=== PATIENT | female | born 1935 | race Caucasian/White ===

== ENCOUNTER 2020-11-07 17:52 | Inpatient (IN) ==
[2020-11-08] MEDS: *HR* OxyCODONE/APAP 5/325 TABLET PO PRN (02:54)
[2020-11-08] MEDS: Sennosides/Docusate Sodium TABLET PO SCH ×2 (09:03→20:55)
[2020-11-08] MEDS: Cholecalciferol (D-3) 1,000 UNIT (25MCG) TABLET PO SCH (09:03)
[2020-11-08] MEDS: lisinopriL 10 MG TABLET PO SCH (09:03)
[2020-11-08] MEDS: polyethylene glycoL 3350 17 GM POWD.PACK PO SCH ×2 (09:04→20:55)
[2020-11-08] MEDS: Metoprolol XL (24 HR) Succ 25 MG TAB.ER.24H PO SCH (11:42)
[2020-11-08] MEDS: *HR* Rivaroxaban 10 MG TABLET PO SCH (17:02)
[2020-11-09] MEDS: Cholecalciferol (D-3) 1,000 UNIT (25MCG) TABLET PO SCH (09:21)
[2020-11-09] MEDS: Sennosides/Docusate Sodium TABLET PO SCH ×2 (09:21→20:47)
[2020-11-09] MEDS: lisinopriL 10 MG TABLET PO SCH (09:21)
[2020-11-09] MEDS: Metoprolol XL (24 HR) Succ 25 MG TAB.ER.24H PO SCH (09:21)
[2020-11-09] MEDS: polyethylene glycoL 3350 17 GM POWD.PACK PO SCH ×2 (09:22→20:47)
[2020-11-09] MEDS: *HR* Rivaroxaban 10 MG TABLET PO SCH (16:55)
[2020-11-10] MEDS: *HR* OxyCODONE/APAP 5/325 TABLET PO PRN (02:56)
[2020-11-10] MEDS: Sennosides/Docusate Sodium TABLET PO SCH ×2 (09:57→20:59)
[2020-11-10] MEDS: polyethylene glycoL 3350 17 GM POWD.PACK PO SCH ×2 (09:57→20:59)
[2020-11-10] MEDS: Cholecalciferol (D-3) 1,000 UNIT (25MCG) TABLET PO SCH (09:58)
[2020-11-10] MEDS: lisinopriL 10 MG TABLET PO SCH (09:58)
[2020-11-10] MEDS: Metoprolol XL (24 HR) Succ 25 MG TAB.ER.24H PO SCH (09:58)
[2020-11-10] MEDS: *HR* Rivaroxaban 10 MG TABLET PO SCH (16:40)
[2020-11-10] MEDS: Acetaminophen 325 MG TABLET PO PRN (16:43)
[2020-11-11] MEDS: lisinopriL 10 MG TABLET PO SCH (08:19)
[2020-11-11] MEDS: Metoprolol XL (24 HR) Succ 25 MG TAB.ER.24H PO SCH (08:19)
[2020-11-11] MEDS: Sennosides/Docusate Sodium TABLET PO SCH ×2 (08:19→20:08)
[2020-11-11] MEDS: Cholecalciferol (D-3) 1,000 UNIT (25MCG) TABLET PO SCH (08:19)
[2020-11-11] MEDS: polyethylene glycoL 3350 17 GM POWD.PACK PO SCH ×2 (08:19→20:08)
[2020-11-11] MEDS: *HR* Rivaroxaban 10 MG TABLET PO SCH (16:38)
[2020-11-11] MEDS: Acetaminophen 325 MG TABLET PO PRN (16:42)
[2020-11-12] MEDS: polyethylene glycoL 3350 17 GM POWD.PACK PO SCH ×2 (09:05→21:11)
[2020-11-12] MEDS: Cholecalciferol (D-3) 1,000 UNIT (25MCG) TABLET PO SCH (09:06)
[2020-11-12] MEDS: Sennosides/Docusate Sodium TABLET PO SCH ×2 (09:06→21:11)
[2020-11-12] MEDS: Metoprolol XL (24 HR) Succ 25 MG TAB.ER.24H PO SCH (09:06)
[2020-11-12] MEDS: lisinopriL 10 MG TABLET PO SCH (09:06)
[2020-11-12] MEDS ORDERED: 0.9 % Sodium Chloride 500 ML ONE (12:17)
[2020-11-12] MEDS ORDERED: 0.9 % Sodium Chloride 500 ML IV ONE (12:23)
[2020-11-12 16:05] LABS: Basophils % 0.2 %; Eosinophils # 0.1 K/mcL (0.0-0.6); Eosinophils % 0.8 %; Hematocrit 33.9 % (35.3-44.9); Hemoglobin 11.2 g/dL (11.5-15.4); Immature Granulocytes % 0.5 % (0-4); Mean Corpuscular Hemoglobin 31.5 pg (28.0-33.3); Mean Corpuscular Volume 95.2 fL (83.0-100.0); Mean Platelet Volume 8.8 fL (9.4-12.4); Monocytes # 0.7 K/mcL (0.0-1.3); Monocytes % 7.3 %; Neutrophils # 8.1 K/mcL (1.6-8.9); Platelet Count 185 K/mcL (140-400); Red Blood Count 3.56 M/mcL (3.82-4.97); Red Cell Distribution Width 13.4 % (11.5-14.5); Segmented Neutrophils % 81.2 %
[2020-11-12] MEDS: *HR* Rivaroxaban 10 MG TABLET PO SCH (16:07)
[2020-11-12 16:22] LABS: BUN/Creatinine Ratio 34 (6-26); Blood Urea Nitrogen 35 mg/dL (8-23); Carbon Dioxide 30 mEq/L (23-29); Chloride 96 mEq/L (98-107); Glucose 153 mg/dL (70-105); Osmolality,Calculated 285 (280-300); Sodium 132 mEq/L (136-145); eGFR For African Americans > 60 (> 60); eGFR For Non-African Americans 51 (> 60)
[2020-11-13] MEDS: *HR* OxyCODONE/APAP 5/325 TABLET PO PRN (09:39)
[2020-11-13] MEDS: Cholecalciferol (D-3) 1,000 UNIT (25MCG) TABLET PO SCH (09:39)
[2020-11-13] MEDS: Sennosides/Docusate Sodium TABLET PO SCH ×2 (09:40→20:31)
[2020-11-13] MEDS: polyethylene glycoL 3350 17 GM POWD.PACK PO SCH ×2 (09:40→20:31)
[2020-11-13] MEDS: *HR* Rivaroxaban 10 MG TABLET PO SCH (16:33)
[2020-11-14] MEDS: Cholecalciferol (D-3) 1,000 UNIT (25MCG) TABLET PO SCH (08:23)
[2020-11-14] MEDS: Sennosides/Docusate Sodium TABLET PO SCH ×2 (08:24→20:55)
[2020-11-14] MEDS: polyethylene glycoL 3350 17 GM POWD.PACK PO SCH ×2 (08:24→20:55)
[2020-11-14] MEDS: *HR* Rivaroxaban 10 MG TABLET PO SCH (16:34)
[2020-11-15] MEDS: *HR* OxyCODONE/APAP 5/325 TABLET PO PRN (03:04)
[2020-11-15] MEDS: polyethylene glycoL 3350 17 GM POWD.PACK PO SCH ×2 (08:45→20:12)
[2020-11-15] MEDS: Cholecalciferol (D-3) 1,000 UNIT (25MCG) TABLET PO SCH (08:46)
[2020-11-15] MEDS: Sennosides/Docusate Sodium TABLET PO SCH ×2 (08:46→20:12)
[2020-11-15] MEDS: *HR* Rivaroxaban 10 MG TABLET PO SCH (17:27)
[2020-11-16] MEDS: Cholecalciferol (D-3) 1,000 UNIT (25MCG) TABLET PO SCH (08:55)
[2020-11-16] MEDS: Sennosides/Docusate Sodium TABLET PO SCH ×2 (08:55→22:07)
[2020-11-16] MEDS: polyethylene glycoL 3350 17 GM POWD.PACK PO SCH ×2 (08:55→22:07)
[2020-11-16] MEDS: *HR* Rivaroxaban 10 MG TABLET PO SCH (17:28)
[2020-11-17 10:04] LABS: Hematocrit 36.7 % (35.3-44.9); Hemoglobin 12.4 g/dL (11.5-15.4); Mean Corpuscular HGB Conc 33.8 g/dL (31.6-35.5); Mean Corpuscular Hemoglobin 31.3 pg (28.0-33.3); Mean Corpuscular Volume 92.7 fL (83.0-100.0); Mean Platelet Volume 8.8 fL (9.4-12.4); Platelet Count 210 K/mcL (140-400); Red Blood Count 3.96 M/mcL (3.82-4.97); Red Cell Distribution Width 13.1 % (11.5-14.5); White Blood Count 9.5 K/mcL (4.3-11.1)
[2020-11-17 10:22] LABS: Alanine Aminotransferase 38 Units/L (7-52); Albumin 3.1 g/dL (3.5-5.7); Albumin/Globulin Ratio 0.6 (1.1-2.2); Alkaline Phosphatase 96 Units/L (34-104); Aspartate Amino Transferase 41 Units/L (13-39); BUN/Creatinine Ratio 27 (6-26); Bilirubin,Total 0.7 mg/dL (0.3-1.0); Blood Urea Nitrogen 25 mg/dL (8-23); Calcium 9.4 mg/dL (8.6-10.3); Carbon Dioxide 27 mEq/L (23-29); Chloride 99 mEq/L (98-107); Globulin 4.8 g/dL (2.4-3.5); Glucose 111 mg/dL (70-105); Osmolality,Calculated 281 (280-300); Potassium 3.6 mEq/L (3.5-5.1); Sodium 133 mEq/L (136-145); Total Protein 7.9 g/dL (6.4-8.9); eGFR For African Americans > 60 (> 60); eGFR For Non-African Americans 59 (> 60)
[2020-11-17 10:23] LABS: Troponin I < 0.03 ng/mL (< 0.04)
[2020-11-17] MEDS: Cholecalciferol (D-3) 1,000 UNIT (25MCG) TABLET PO SCH (10:23)
[2020-11-17] MEDS: polyethylene glycoL 3350 17 GM POWD.PACK PO SCH ×2 (10:23→21:59)
[2020-11-17] MEDS: Sennosides/Docusate Sodium TABLET PO SCH ×2 (10:23→22:12)
[2020-11-17] MEDS: *HR* Rivaroxaban 10 MG TABLET PO SCH (16:35)
[2020-11-18] MEDS: *HR* OxyCODONE/APAP 5/325 TABLET PO PRN (00:44)
[2020-11-18] MEDS: Cholecalciferol (D-3) 1,000 UNIT (25MCG) TABLET PO SCH (10:44)
[2020-11-18] MEDS: Sennosides/Docusate Sodium TABLET PO SCH ×2 (10:45→20:47)
[2020-11-18] MEDS: polyethylene glycoL 3350 17 GM POWD.PACK PO SCH ×2 (10:45→20:19)
[2020-11-18] MEDS: *HR* Rivaroxaban 10 MG TABLET PO SCH (16:46)
[2020-11-18] MEDS: Acetaminophen 325 MG TABLET PO PRN (20:47)
[2020-11-19] MEDS: polyethylene glycoL 3350 17 GM POWD.PACK PO SCH ×2 (10:39→21:06)
[2020-11-19] MEDS: Cholecalciferol (D-3) 1,000 UNIT (25MCG) TABLET PO SCH (10:39)
[2020-11-19] MEDS: Sennosides/Docusate Sodium TABLET PO SCH ×2 (10:39→21:06)
[2020-11-19] MEDS: *HR* Rivaroxaban 10 MG TABLET PO SCH (17:41)
[2020-11-20] MEDS: polyethylene glycoL 3350 17 GM POWD.PACK PO SCH ×2 (10:01→22:35)
[2020-11-20] MEDS: Sennosides/Docusate Sodium TABLET PO SCH ×2 (10:01→22:34)
[2020-11-20] MEDS: Cholecalciferol (D-3) 1,000 UNIT (25MCG) TABLET PO SCH (10:01)
[2020-11-20] MEDS ORDERED: Ondansetron ODT 4 MG TAB.RAPDIS SL PRN (11:44)
[2020-11-20] MEDS: *HR* Rivaroxaban 10 MG TABLET PO SCH (16:27)
[2020-11-21] MEDS: Cholecalciferol (D-3) 1,000 UNIT (25MCG) TABLET PO SCH (09:17)
[2020-11-21] MEDS: Sennosides/Docusate Sodium TABLET PO SCH ×2 (09:17→20:52)
[2020-11-21] MEDS: polyethylene glycoL 3350 17 GM POWD.PACK PO SCH ×2 (11:12→20:52)
[2020-11-21] MEDS: *HR* Rivaroxaban 10 MG TABLET PO SCH (16:01)
[2020-11-21] MEDS: Mirtazapine 15 MG TABLET PO SCH (20:52)
[2020-11-21] MEDS: *HR* OxyCODONE/APAP 5/325 TABLET PO PRN (20:52)
[2020-11-22 05:52] LABS: Basophils % 0.6 %; Eosinophils # 0.2 K/mcL (0.0-0.6); Eosinophils % 3.3 %; Hematocrit 35.6 % (35.3-44.9); Hemoglobin 11.8 g/dL (11.5-15.4); Immature Granulocytes % 0.4 % (0-4); Lymphocytes # 1.6 K/mcL (0.6-4.6); Lymphocytes % 31.7 %; Mean Corpuscular HGB Conc 33.1 g/dL (31.6-35.5); Mean Corpuscular Hemoglobin 31.2 pg (28.0-33.3); Mean Corpuscular Volume 94.2 fL (83.0-100.0); Mean Platelet Volume 9.7 fL (9.4-12.4); Monocytes # 0.5 K/mcL (0.0-1.3); Monocytes % 10.5 %; Neutrophils # 2.8 K/mcL (1.6-8.9); Platelet Count 172 K/mcL (140-400); Red Blood Count 3.78 M/mcL (3.82-4.97); Red Cell Distribution Width 13.5 % (11.5-14.5); Segmented Neutrophils % 53.5 %; White Blood Count 5.2 K/mcL (4.3-11.1)
[2020-11-22 06:15] LABS: BUN/Creatinine Ratio 25 (6-26); Blood Urea Nitrogen 25 mg/dL (8-23); Calcium 9.1 mg/dL (8.6-10.3); Carbon Dioxide 29 mEq/L (23-29); Chloride 101 mEq/L (98-107); Glucose 76 mg/dL (70-105); Osmolality,Calculated 281 (280-300); Sodium 134 mEq/L (136-145); eGFR For African Americans > 60 (> 60); eGFR For Non-African Americans 53 (> 60)
[2020-11-22] MEDS: Acetaminophen 325 MG TABLET PO PRN (09:18)
[2020-11-22] MEDS: polyethylene glycoL 3350 17 GM POWD.PACK PO SCH ×2 (09:18→20:09)
[2020-11-22] MEDS: Sennosides/Docusate Sodium TABLET PO SCH ×2 (09:19→20:10)
[2020-11-22] MEDS: Cholecalciferol (D-3) 1,000 UNIT (25MCG) TABLET PO SCH (09:19)
[2020-11-22] MEDS: *HR* Rivaroxaban 10 MG TABLET PO SCH (17:29)
[2020-11-22] MEDS: Mirtazapine 15 MG TABLET PO SCH (19:47)
[2020-11-23] MEDS: Acetaminophen 325 MG TABLET PO PRN (09:11)
[2020-11-23] MEDS: Cholecalciferol (D-3) 1,000 UNIT (25MCG) TABLET PO SCH (09:11)
[2020-11-23] MEDS: Sennosides/Docusate Sodium TABLET PO SCH ×2 (09:12→19:50)
[2020-11-23] MEDS: polyethylene glycoL 3350 17 GM POWD.PACK PO SCH ×2 (09:16→19:50)
[2020-11-23] MEDS: *HR* Rivaroxaban 10 MG TABLET PO SCH (17:16)
[2020-11-23] MEDS: Mirtazapine 15 MG TABLET PO SCH (19:40)
[2020-11-24] MEDS: Acetaminophen 325 MG TABLET PO PRN (03:54)
[2020-11-24] MEDS: polyethylene glycoL 3350 17 GM POWD.PACK PO SCH ×2 (10:04→19:47)
[2020-11-24] MEDS: Cholecalciferol (D-3) 1,000 UNIT (25MCG) TABLET PO SCH (10:04)
[2020-11-24] MEDS: Sennosides/Docusate Sodium TABLET PO SCH ×2 (10:05→19:47)
[2020-11-24 10:54] LABS: Bilirubin,Urine Small (Negative); Blood,Urine Large (Negative); Clarity,Urine Turbid (Clear); Color,Urine Brown (Yellow); Glucose,Urine (UA) Normal (Normal); Ketones,Urine Negative (Negative); Leukocyte Esterase,Urine Small (Negative); Nitrite,Urine Negative (Negative); PH,Urine 7.5 pH Units (5.0-8.0); Protein,Urine Trace mg/dL (Neg-Trace)
[2020-11-24 11:03] LABS: Amorphous Sediment,Urine Many per hpf (None-Few); Bacteria,Urine Many per hpf (None-Few); Granular Casts,Urine Few per lpf (None Seen); Mucus,Urine Few per lpf (None-Few); RBC,Urine 30-50 per hpf (0-3); Squamous Epithelial Cell,Urine Few per hpf (None-Few)
[2020-11-24] MEDS: *HR* Rivaroxaban 10 MG TABLET PO SCH (17:54)
[2020-11-24] MEDS: Mirtazapine 15 MG TABLET PO SCH (19:44)
[2020-11-24 23:03] LABS: Bilirubin,Urine Negative (Negative); Blood,Urine Moderate (Negative); Clarity,Urine Clear (Clear); Color,Urine Yellow (Yellow); Glucose,Urine (UA) Normal (Normal); Ketones,Urine Negative (Negative); Leukocyte Esterase,Urine Negative (Negative); Nitrite,Urine Negative (Negative); Protein,Urine 30 mg/dL (Neg-Trace); Specific Gravity,Urine 1.025 (1.010-1.025); Urobilinogen,Urine Normal (Normal)
[2020-11-24 23:17] LABS: Mucus,Urine Many per lpf (None-Few)
[2020-11-24 23:19] LABS: RBC,Urine TNTC per hpf (0-3)
[2020-11-24 23:20] LABS: Hyaline Casts,Urine Few per lpf (None Seen); Squamous Epithelial Cell,Urine Few per hpf (None-Few)
[2020-11-24 23:21] LABS: Amorphous Sediment,Urine Few per hpf (None-Few); Bacteria,Urine Many per hpf (None-Few)
[2020-11-24 23:24] LABS: Granular Casts,Urine Few per lpf (None Seen)
[2020-11-25] MEDS ORDERED: cefTRIAXone 1,000 MG in 0.9 % Sodium Chloride Mini Bag 100 ML IVPB SCH (09:00)
[2020-11-25] MEDS: cefTRIAXone 1,000 MG in Water for inj. (sterile) 10 ML IVP SCH (10:01)
[2020-11-25] MEDS: polyethylene glycoL 3350 17 GM POWD.PACK PO SCH ×3 (10:01→21:47)
[2020-11-25] MEDS: Sennosides/Docusate Sodium TABLET PO SCH ×2 (10:01→21:47)
[2020-11-25] MEDS: Cholecalciferol (D-3) 1,000 UNIT (25MCG) TABLET PO SCH (10:01)
[2020-11-25] MEDS: *HR* Rivaroxaban 10 MG TABLET PO SCH (17:09)
[2020-11-25] MEDS: Mirtazapine 15 MG TABLET PO SCH ×2 (21:53→22:02)
[2020-11-26] MEDS: cefTRIAXone 1,000 MG in Water for inj. (sterile) 10 ML IVP SCH ×2 (09:40→15:42)
[2020-11-26] MEDS: Sennosides/Docusate Sodium TABLET PO SCH (09:41)
[2020-11-26] MEDS: polyethylene glycoL 3350 17 GM POWD.PACK PO SCH (09:41)
[2020-11-26] MEDS: Cholecalciferol (D-3) 1,000 UNIT (25MCG) TABLET PO SCH (09:41)
[2020-11-26] MEDS: levoFLOXacin 500 MG TABLET PO SCH (12:07)
[2020-11-26] MEDS: *HR* Rivaroxaban 10 MG TABLET PO SCH (16:44)
[2020-11-26] MEDS: Mirtazapine 15 MG TABLET PO SCH (19:33)
[2020-11-27] MEDS: levoFLOXacin 500 MG TABLET PO SCH (09:06)
[2020-11-27] MEDS: Cholecalciferol (D-3) 1,000 UNIT (25MCG) TABLET PO SCH (09:07)
[2020-11-27] MEDS: Acetaminophen 325 MG TABLET PO PRN (09:07)
[2020-11-27] MEDS: Sennosides/Docusate Sodium TABLET PO SCH ×2 (09:07→20:24)
[2020-11-27] MEDS: polyethylene glycoL 3350 17 GM POWD.PACK PO SCH ×2 (09:07→20:24)
[2020-11-27] MEDS: *HR* Rivaroxaban 10 MG TABLET PO SCH (17:29)
[2020-11-27] MEDS: Mirtazapine 15 MG TABLET PO SCH (20:24)
[2020-11-28] MEDS: levoFLOXacin 500 MG TABLET PO SCH (08:02)
[2020-11-28] MEDS: Acetaminophen 325 MG TABLET PO PRN ×2 (08:02→23:46)
[2020-11-28] MEDS: Sennosides/Docusate Sodium TABLET PO SCH ×2 (08:02→20:01)
[2020-11-28] MEDS: polyethylene glycoL 3350 17 GM POWD.PACK PO SCH ×2 (08:03→20:01)
[2020-11-28] MEDS: Cholecalciferol (D-3) 1,000 UNIT (25MCG) TABLET PO SCH (08:03)
[2020-11-28 10:41] LABS: Basophils % 0.1 %; Hematocrit 39.1 % (35.3-44.9); Hemoglobin 13.4 g/dL (11.5-15.4); Immature Granulocytes % 0.4 % (0-4); Lymphocytes # 0.5 K/mcL (0.6-4.6); Lymphocytes % 3.8 %; Mean Corpuscular HGB Conc 34.3 g/dL (31.6-35.5); Mean Corpuscular Hemoglobin 31.8 pg (28.0-33.3); Mean Corpuscular Volume 92.7 fL (83.0-100.0); Monocytes # 0.9 K/mcL (0.0-1.3); Monocytes % 6.7 %; Neutrophils # 12.4 K/mcL (1.6-8.9); Platelet Count 123 K/mcL (140-400); Red Blood Count 4.22 M/mcL (3.82-4.97); Red Cell Distribution Width 13.6 % (11.5-14.5); White Blood Count 13.9 K/mcL (4.3-11.1)
[2020-11-28] MEDS ORDERED: *HR* Metoprolol 5 MG/5 ML VIAL IVP ONE (10:43)
[2020-11-28 11:01] LABS: Alanine Aminotransferase 32 Units/L (7-52); Albumin 2.9 g/dL (3.5-5.7); Albumin/Globulin Ratio 0.6 (1.1-2.2); Alkaline Phosphatase 78 Units/L (34-104); Aspartate Amino Transferase 22 Units/L (13-39); BUN/Creatinine Ratio 28 (6-26); Bilirubin,Total 1.1 mg/dL (0.3-1.0); Blood Urea Nitrogen 31 mg/dL (8-23); Calcium 8.8 mg/dL (8.6-10.3); Carbon Dioxide 23 mEq/L (23-29); Chloride 101 mEq/L (98-107); Globulin 4.5 g/dL (2.4-3.5); Glucose 218 mg/dL (70-105); Osmolality,Calculated 287 (280-300); Potassium 3.5 mEq/L (3.5-5.1); Sodium 132 mEq/L (136-145); Total Protein 7.4 g/dL (6.4-8.9); eGFR For African Americans 58 (> 60); eGFR For Non-African Americans 48 (> 60)
[2020-11-28 11:04] LABS: Troponin I < 0.03 ng/mL (< 0.04)
[2020-11-28] MEDS ORDERED: 0.9 % Sodium Chloride 1,000 ML ONE (11:06)
[2020-11-28] MEDS ORDERED: 0.9 % Sodium Chloride 1,000 ML IVC SCH (11:15)
[2020-11-28] MEDS: *HR* Rivaroxaban 10 MG TABLET PO SCH (15:34)
[2020-11-28] MEDS: Mirtazapine 15 MG TABLET PO SCH (20:01)
[2020-11-29] MEDS: polyethylene glycoL 3350 17 GM POWD.PACK PO SCH ×2 (07:33→20:17)
[2020-11-29] MEDS: Sennosides/Docusate Sodium TABLET PO SCH ×2 (07:33→20:18)
[2020-11-29] MEDS: Cholecalciferol (D-3) 1,000 UNIT (25MCG) TABLET PO SCH (07:33)
[2020-11-29] MEDS ORDERED: Ipratropium/Albuterol Neb 3 ML IH PRN (07:54)
[2020-11-29] MEDS: Loratadine 10 MG TABLET PO SCH (08:43)
[2020-11-29] MEDS: Acetaminophen 325 MG TABLET PO PRN ×2 (11:11→17:11)
[2020-11-29] MEDS: *HR* Rivaroxaban 10 MG TABLET PO SCH (17:11)
[2020-11-29] MEDS: Mirtazapine 15 MG TABLET PO SCH (20:19)
[2020-11-30] MEDS: Sennosides/Docusate Sodium TABLET PO SCH ×2 (09:31→20:01)
[2020-11-30] MEDS: Loratadine 10 MG TABLET PO SCH (09:31)
[2020-11-30] MEDS: Cholecalciferol (D-3) 1,000 UNIT (25MCG) TABLET PO SCH (09:32)
[2020-11-30] MEDS: polyethylene glycoL 3350 17 GM POWD.PACK PO SCH ×2 (09:32→20:01)
[2020-11-30] MEDS ORDERED: *HR* Metoprolol 5 MG/5 ML VIAL IVP ONE (15:18)
[2020-11-30] MEDS: *HR* Rivaroxaban 10 MG TABLET PO SCH (16:05)
[2020-11-30] MEDS: Mirtazapine 15 MG TABLET PO SCH (20:01)
[2020-12-01] MEDS: Sennosides/Docusate Sodium TABLET PO SCH ×2 (10:41→20:51)
[2020-12-01] MEDS: polyethylene glycoL 3350 17 GM POWD.PACK PO SCH ×2 (10:41→20:51)
[2020-12-01] MEDS: Loratadine 10 MG TABLET PO SCH (10:42)
[2020-12-01] MEDS: Cholecalciferol (D-3) 1,000 UNIT (25MCG) TABLET PO SCH (10:42)
[2020-12-01] MEDS: *HR* Rivaroxaban 10 MG TABLET PO SCH (16:34)
[2020-12-01] MEDS: Mirtazapine 15 MG TABLET PO SCH (20:51)
[2020-12-02] MEDS: Sennosides/Docusate Sodium TABLET PO SCH ×2 (08:02→20:59)
[2020-12-02] MEDS: polyethylene glycoL 3350 17 GM POWD.PACK PO SCH ×2 (08:02→21:00)
[2020-12-02] MEDS: Loratadine 10 MG TABLET PO SCH (08:03)
[2020-12-02] MEDS: Cholecalciferol (D-3) 1,000 UNIT (25MCG) TABLET PO SCH (08:03)
[2020-12-02] MEDS: *HR* Rivaroxaban 10 MG TABLET PO SCH (15:07)
[2020-12-02] MEDS: Mirtazapine 15 MG TABLET PO SCH (20:59)
[2020-12-03] MEDS: Loratadine 10 MG TABLET PO SCH (09:03)
[2020-12-03] MEDS: polyethylene glycoL 3350 17 GM POWD.PACK PO SCH ×2 (09:03→20:33)
[2020-12-03] MEDS: Sennosides/Docusate Sodium TABLET PO SCH ×2 (09:03→20:34)
[2020-12-03] MEDS: Cholecalciferol (D-3) 1,000 UNIT (25MCG) TABLET PO SCH (09:03)
[2020-12-03] MEDS: *HR* Rivaroxaban 10 MG TABLET PO SCH (16:37)
[2020-12-03] MEDS: Mirtazapine 15 MG TABLET PO SCH (20:34)
[2020-12-04] MEDS: polyethylene glycoL 3350 17 GM POWD.PACK PO SCH ×2 (09:56→20:38)
[2020-12-04] MEDS: Loratadine 10 MG TABLET PO SCH (09:56)
[2020-12-04] MEDS: Sennosides/Docusate Sodium TABLET PO SCH ×2 (09:57→20:38)
[2020-12-04] MEDS: Cholecalciferol (D-3) 1,000 UNIT (25MCG) TABLET PO SCH (09:57)
[2020-12-04] MEDS: *HR* Rivaroxaban 10 MG TABLET PO SCH (16:51)
[2020-12-04] MEDS: Mirtazapine 15 MG TABLET PO SCH (20:38)
[2020-12-05] MEDS: Loratadine 10 MG TABLET PO SCH (09:53)
[2020-12-05] MEDS: Cholecalciferol (D-3) 1,000 UNIT (25MCG) TABLET PO SCH (09:53)
[2020-12-05] MEDS: Sennosides/Docusate Sodium TABLET PO SCH ×2 (09:53→20:25)
[2020-12-05] MEDS: polyethylene glycoL 3350 17 GM POWD.PACK PO SCH ×2 (09:53→20:25)
[2020-12-05] MEDS: *HR* Rivaroxaban 10 MG TABLET PO SCH (17:00)
[2020-12-05] MEDS: Mirtazapine 15 MG TABLET PO SCH (20:25)
[2020-12-06] MEDS: Sennosides/Docusate Sodium TABLET PO SCH (09:35)
[2020-12-06] MEDS: Loratadine 10 MG TABLET PO SCH (09:35)
[2020-12-06] MEDS: Cholecalciferol (D-3) 1,000 UNIT (25MCG) TABLET PO SCH (09:36)
[2020-12-06] MEDS: polyethylene glycoL 3350 17 GM POWD.PACK PO SCH (09:36)
[2020-12-06] MEDS: *HR* Rivaroxaban 10 MG TABLET PO SCH (17:58)
[2020-12-06] MEDS ORDERED: *HR* Metoprolol 5 MG/5 ML VIAL IVP ONE (20:10)
[2020-12-07] MEDS: Mirtazapine 15 MG TABLET PO SCH ×2 (00:51→20:01)
[2020-12-07] MEDS: polyethylene glycoL 3350 17 GM POWD.PACK PO SCH ×3 (00:52→20:03)
[2020-12-07] MEDS: Sennosides/Docusate Sodium TABLET PO SCH ×3 (00:52→20:01)
[2020-12-07] MEDS: Cholecalciferol (D-3) 1,000 UNIT (25MCG) TABLET PO SCH (09:38)
[2020-12-07] MEDS: Loratadine 10 MG TABLET PO SCH (09:38)
[2020-12-07] MEDS: *HR* Rivaroxaban 10 MG TABLET PO SCH (17:16)
[2020-12-08] MEDS: Acetaminophen 325 MG TABLET PO PRN (03:50)
[2020-12-08] MEDS ORDERED: *HR* Metoprolol 5 MG/5 ML VIAL IVP ONE (03:57)
[2020-12-08] MEDS: Sennosides/Docusate Sodium TABLET PO SCH ×2 (09:26→20:40)
[2020-12-08] MEDS: polyethylene glycoL 3350 17 GM POWD.PACK PO SCH ×2 (09:27→20:40)
[2020-12-08] MEDS: Loratadine 10 MG TABLET PO SCH (09:27)
[2020-12-08] MEDS: Cholecalciferol (D-3) 1,000 UNIT (25MCG) TABLET PO SCH (09:27)
[2020-12-08 10:00] LABS: Basophils % 0.3 %; Eosinophils # 0.2 K/mcL (0.0-0.6); Eosinophils % 1.6 %; Hematocrit 37.9 % (35.3-44.9); Hemoglobin 12.4 g/dL (11.5-15.4); Immature Granulocytes % 0.5 % (0-4); Lymphocytes # 1.3 K/mcL (0.6-4.6); Lymphocytes % 13.6 %; Mean Corpuscular HGB Conc 32.7 g/dL (31.6-35.5); Mean Corpuscular Hemoglobin 31.2 pg (28.0-33.3); Mean Corpuscular Volume 95.2 fL (83.0-100.0); Mean Platelet Volume 8.9 fL (9.4-12.4); Monocytes # 0.8 K/mcL (0.0-1.3); Monocytes % 8.7 %; Neutrophils # 7.3 K/mcL (1.6-8.9); Platelet Count 266 K/mcL (140-400); Red Blood Count 3.98 M/mcL (3.82-4.97); Segmented Neutrophils % 75.3 %; White Blood Count 9.7 K/mcL (4.3-11.1)
[2020-12-08 11:27] LABS: BUN/Creatinine Ratio 36 (6-26); Blood Urea Nitrogen 31 mg/dL (8-23); Calcium 8.6 mg/dL (8.6-10.3); Carbon Dioxide 27 mEq/L (23-29); Chloride 102 mEq/L (98-107); Glucose 133 mg/dL (70-105); Osmolality,Calculated 290 (280-300); Potassium 3.5 mEq/L (3.5-5.1); Sodium 136 mEq/L (136-145); eGFR For African Americans > 60 (> 60); eGFR For Non-African Americans > 60 (> 60)
[2020-12-08] MEDS: *HR* Rivaroxaban 10 MG TABLET PO SCH (16:35)
[2020-12-08] MEDS: Mirtazapine 15 MG TABLET PO SCH (20:40)
[2020-12-09] MEDS: Levalbuterol 1 PUFF INHALER IH PRN (00:43)
[2020-12-09] MEDS: Sennosides/Docusate Sodium TABLET PO SCH ×2 (07:50→19:45)
[2020-12-09] MEDS: polyethylene glycoL 3350 17 GM POWD.PACK PO SCH ×2 (07:50→19:45)
[2020-12-09] MEDS: Loratadine 10 MG TABLET PO SCH (07:58)
[2020-12-09] MEDS: Cholecalciferol (D-3) 1,000 UNIT (25MCG) TABLET PO SCH (07:58)
[2020-12-09] MEDS ORDERED: *HR* Metoprolol 5 MG/5 ML VIAL IVP PRN (14:37)
[2020-12-09] MEDS: *HR* Rivaroxaban 10 MG TABLET PO SCH (16:29)
[2020-12-09] MEDS ORDERED: Furosemide 20 MG TABLET PO ONE (18:15)
[2020-12-09] MEDS: Mirtazapine 15 MG TABLET PO SCH (19:45)
[2020-12-10 07:07] LABS: Basophils % 0.2 %; Eosinophils # 0.3 K/mcL (0.0-0.6); Eosinophils % 2.6 %; Hematocrit 35.8 % (35.3-44.9); Hemoglobin 11.7 g/dL (11.5-15.4); Immature Granulocytes % 0.4 % (0-4); Lymphocytes # 1.4 K/mcL (0.6-4.6); Lymphocytes % 14.8 %; Mean Corpuscular HGB Conc 32.7 g/dL (31.6-35.5); Mean Corpuscular Volume 94.7 fL (83.0-100.0); Mean Platelet Volume 8.8 fL (9.4-12.4); Monocytes # 0.8 K/mcL (0.0-1.3); Monocytes % 8.8 %; Platelet Count 218 K/mcL (140-400); Red Blood Count 3.78 M/mcL (3.82-4.97); Red Cell Distribution Width 13.1 % (11.5-14.5); Segmented Neutrophils % 73.2 %; White Blood Count 9.6 K/mcL (4.3-11.1)
[2020-12-10 07:29] LABS: BUN/Creatinine Ratio 35 (6-26); Blood Urea Nitrogen 25 mg/dL (8-23); Calcium 8.2 mg/dL (8.6-10.3); Carbon Dioxide 30 mEq/L (23-29); Chloride 103 mEq/L (98-107); Glucose 87 mg/dL (70-105); Osmolality,Calculated 286 (280-300); Potassium 3.4 mEq/L (3.5-5.1); Sodium 136 mEq/L (136-145); eGFR For African Americans > 60 (> 60); eGFR For Non-African Americans > 60 (> 60)
[2020-12-10] MEDS: Sennosides/Docusate Sodium TABLET PO SCH (08:02)
[2020-12-10] MEDS: Cholecalciferol (D-3) 1,000 UNIT (25MCG) TABLET PO SCH (08:03)
[2020-12-10] MEDS: polyethylene glycoL 3350 17 GM POWD.PACK PO SCH (08:03)
[2020-12-10] MEDS: Loratadine 10 MG TABLET PO SCH (08:03)
[2020-12-10] MEDS ORDERED: polyethylene glycoL 3350 17 GM POWD.PACK PO PRN (09:19)
[2020-12-10] MEDS ORDERED: Sennosides/Docusate Sodium TABLET PO PRN (09:19)
[2020-12-10] MEDS ORDERED: 0.9 % Sodium Chloride 250 ML IV ONE (11:48)
[2020-12-10] MEDS: 0.9 % Sodium Chloride 1,000 ML IVC SCH ×2 (12:49→23:11)
[2020-12-10] MEDS: *HR* Rivaroxaban 10 MG TABLET PO SCH (17:17)
[2020-12-10] MEDS: Mirtazapine 15 MG TABLET PO SCH (20:04)
[2020-12-11] MEDS: 0.9 % Sodium Chloride 1,000 ML IVC SCH ×3 (05:35→22:51)
[2020-12-11] MEDS: Cholecalciferol (D-3) 1,000 UNIT (25MCG) TABLET PO SCH (10:25)
[2020-12-11] MEDS: Loratadine 10 MG TABLET PO SCH (10:25)
[2020-12-11] MEDS: *HR* Rivaroxaban 10 MG TABLET PO SCH (17:52)
[2020-12-11] MEDS: *HR* LORazepam 0.5 MG TABLET PO PRN (18:46)
[2020-12-11] MEDS: Mirtazapine 15 MG TABLET PO SCH (20:06)
[2020-12-12] MEDS: Levalbuterol 1 PUFF INHALER IH PRN (04:01)
[2020-12-12] MEDS: 0.9 % Sodium Chloride 1,000 ML IVC SCH (06:34)
[2020-12-12] MEDS: Loratadine 10 MG TABLET PO SCH (07:43)
[2020-12-12] MEDS: Cholecalciferol (D-3) 1,000 UNIT (25MCG) TABLET PO SCH (07:43)
[2020-12-12 09:13] LABS: Basophils % 0.2 %; Eosinophils # 0.2 K/mcL (0.0-0.6); Eosinophils % 1.9 %; Hematocrit 36.4 % (35.3-44.9); Hemoglobin 11.6 g/dL (11.5-15.4); Immature Granulocytes % 0.4 % (0-4); Lymphocytes # 1.7 K/mcL (0.6-4.6); Lymphocytes % 14.8 %; Mean Corpuscular HGB Conc 31.9 g/dL (31.6-35.5); Mean Corpuscular Hemoglobin 30.6 pg (28.0-33.3); Mean Platelet Volume 8.6 fL (9.4-12.4); Monocytes # 0.8 K/mcL (0.0-1.3); Monocytes % 7.4 %; Neutrophils # 8.6 K/mcL (1.6-8.9); Platelet Count 296 K/mcL (140-400); Red Blood Count 3.79 M/mcL (3.82-4.97); Red Cell Distribution Width 13.3 % (11.5-14.5); Segmented Neutrophils % 75.3 %; White Blood Count 11.4 K/mcL (4.3-11.1)
[2020-12-12 09:29] LABS: BUN/Creatinine Ratio 28 (6-26); Blood Urea Nitrogen 17 mg/dL (8-23); Carbon Dioxide 25 mEq/L (23-29); Chloride 109 mEq/L (98-107); Glucose 97 mg/dL (70-105); Osmolality,Calculated 285 (280-300); Potassium 3.7 mEq/L (3.5-5.1); Sodium 137 mEq/L (136-145); eGFR For African Americans > 60 (> 60); eGFR For Non-African Americans > 60 (> 60)
[2020-12-12] MEDS ORDERED: Furosemide 20 MG/2 ML VIAL IVP ONE ×2 (10:07→12:00)
[2020-12-12] MEDS ORDERED: Albumin 25% 25gram/100mL 25 GM/100 ML IV.SOLN IVPB ONE (10:07)
[2020-12-12] MEDS: *HR* LORazepam 0.5 MG TABLET PO PRN (13:23)
[2020-12-12] MEDS ORDERED: Albumin 25% 25gram/100mL 25 GM/100 ML IV.SOLN IVPB SCH (16:00)
[2020-12-12] MEDS: *HR* Rivaroxaban 10 MG TABLET PO SCH (16:15)
[2020-12-12 18:56] VITALS: BP 110/74
== END 2020-12-12 19:39 | disposition short-term general hospital (02) | DRG 559 ==
LOC: INPPIK 21:31
PROVIDERS: ADMIT Family Medicine; ATTEND Family Medicine